=== PATIENT | male | born 1960 | race Caucasian/White ===

== ENCOUNTER → 2020-06-13 | Outpatient (CLI) | payer OTHER ==
[2020-06-14 10:14] LABS: Stool Occult Bld Immuno 1 Negative (NEGATIVE)
== END | disposition home or self-care (01) ==
LOC: LAB SHORT 15:13 → LAB SRC 15:13 → LAB FUT 06-12 07:00
PROVIDERS: Physician Assistant
DX: Z12.11 Encounter for screening for malignant neoplasm of colon (principal)
CPT/HCPCS: G0328

== ENCOUNTER → 2022-10-05 | Outpatient (CLI) | payer OTHER ==
[2022-10-08 07:57] LABS: Stool Occult Bld Immuno 1 Negative (NEGATIVE)
== END ==
LOC: LAB 12:00 → LAB SHORT 12:00
PROVIDERS: Physician Assistant
DX: Z12.11 Encounter for screening for malignant neoplasm of colon (principal)
CPT/HCPCS: G0328

== ENCOUNTER → 2023-09-13 | Outpatient (CLI) | payer OTHER ==
[2023-09-13 14:42] LABS: Stool Occult Bld Immuno 1 Negative (NEGATIVE)
== END | disposition home or self-care (01) ==
LOC: LAB SHORT 09:00 → LAB 09:00
PROVIDERS: Physician Assistant
DX: Z12.11 Encounter for screening for malignant neoplasm of colon (principal)
CPT/HCPCS: G0328

== ENCOUNTER 2024-07-29 10:10 | Emergency (ER) | payer MEDICARE, OTHER ==
[~2024-07-29] VITALS: Ht 180.3 cm; Wt 87.5 kg
[2024-07-29 11:12] LABS: BASOPHILS ABSOLUTE AUTO 0.03 K/mm3 (0.00-0.23); BASOPHILS PERCENT AUTO 1 % (0-2); EOSINOPHILS ABSOLUTE AUTO 0.24 K/mm3 (0.00-0.68); EOSINOPHILS PERCENT AUTO 5 % (0-6); Hematocrit 38.8 % (37.0-53.0); Hemoglobin 13.3 g/dL (13.5-17.5); IMMATURE GRAN ABSOLUTE AUTO 0.02 K/mm3 (0.00-0.10); IMMATURE GRAN PERCENT AUTO 0 % (0-1); LYMPHOCYTES ABSOLUTE AUTO 2.41 K/mm3 (0.84-5.20); LYMPHOCYTES PERCENT AUTO 48 % (21-46); MONOCYTES ABSOLUTE AUTO 0.72 K/mm3 (0.16-1.47); MONOCYTES PERCENT AUTO 14 % (4-13); Mean Corpuscular HGB Conc 34.3 g/dL (31.5-36.5); Mean Corpuscular Volume 82 fL (80-100); NEUTROPHILS ABSOLUTE AUTO 1.62 K/mm3 (1.96-9.15); NEUTROPHILS PERCENT AUTO 32 % (41-73); Platelet Count 263 K/mm3 (150-400); RDW Coefficient Variation 14.7 % (11.7-14.2); RDW Standard Deviation 43.5 fL (35.1-46.3); Red Blood Cell Count 4.75 M/mm3 (4.30-5.90); White Blood Cell Count 5.04 K/mm3 (4.00-11.30)
[2024-07-29 11:22] LABS: Albumin, Blood 3.6 g/dL (3.4-5.0); Albumin/Globulin Ratio 0.9 (0.8-1.8); Bilirubin, Total 0.8 mg/dL (0.1-1.0); Bun/Creatinine Ratio 17.5 (12.0-20.0); Calcium, Blood 9.1 mg/dL (8.5-10.1); Creatinine, Blood 0.8 mg/dL (0.60-1.20); Globulin, Blood 3.8 g/dL (2.2-4.0); Potassium, Blood 3.9 mmol/L (3.5-5.5); Total Protein, Blood 7.4 g/dL (6.4-8.2)
[2024-07-29 11:57] LABS: Source, Urine Clean Catch
[2024-07-29 12:01] LABS: Bilirubin, Urine Neg (Neg); Blood, Urine 5+ (Neg); Glucose Qualitative, Urine Neg (Neg); Ketones, Urine Neg (Neg); Leukocyte Esterase, Urine 1+ (Neg); Nitrite, Urine Neg (Neg); Protein, Urine 2+ (Neg); Specific Gravity, Urine 1.015 (1.003-1.022); Urobilinogen, Urine NORM (Normal)
[2024-07-29 12:22] LABS: Appearance, Urine Hazy (Clear); Color, Urine Yellow (P-Yellow)
[2024-07-29 12:23] LABS: Bacteria Few /hpf; Red Blood Cells, Urine 25-50 /hpf (0-2); Squamous Epithelial Cells Not Seen /hpf (Few)
[2024-07-29] MEDS ORDERED: ATOR10 (13:09)
[2024-07-29] MEDS ORDERED: FLUT.05NI (13:09)
[2024-07-29] MEDS ORDERED: Ketorolac Tromethamine 15mg Vial IV ONE ×2 (14:40→16:55)
[2024-07-29] MEDS ORDERED: FentaNYL Citrate 50 MCG/ML 2 ML Injection IV ONE ×2 (14:40→15:15)
[2024-07-29] MEDS ORDERED: Percocet 5-3251 EACH PO (16:48)
[2024-07-29] MEDS ORDERED: IBUP600 PO (16:48)
[2024-07-29] MEDS ORDERED: CEPH500 PO (16:48)
[2024-07-29 17:11] VITALS: BP 136/82
== END 2024-07-29 17:11 | disposition home or self-care (01) ==
LOC: ER 10:10
PROVIDERS: Student in an Organized Health Care Education/Training Program
DX: N13.2 Hydronephrosis with renal and ureteral calculous obstruction (principal); Z87.891 Personal history of nicotine dependence; Z79.899 Other long term (current) drug therapy
CPT/HCPCS: 74177; 80053; 81001; 83690; 84484; 85025; 87086; 93005; 93010; 96374-59; 96375; 99284-25; J1885; J3010; Q9967

== ENCOUNTER → 2024-09-30 | Outpatient (CLI) | payer MEDICARE, OTHER ==
[~2024-09-30] MED LIST: ATOR10; CEPH500 PO; FLUT.05NI; IBUP600 PO; Percocet 5-3251 EACH PO
[2024-10-03 15:40] LABS: Stool Occult Bld Immuno 1 Positive (NEGATIVE)
== END ==
LOC: LAB SHORT 05:00 → LAB 05:00
DX: Z12.11 Encounter for screening for malignant neoplasm of colon (principal); Z12.12 Encounter for screening for malignant neoplasm of rectum
CPT/HCPCS: G0328

== ENCOUNTER → 2024-10-26 | Outpatient (CLI) | payer OTHER ==
[2024-11-01 12:12] LABS: CALCIUM, URINE - PER 24H 292 mg/d (100-250); CALCIUM, URINE - PER VOLUME 26.5 mg/dL; CHLORIDE, URINE - PER 24H 167 mmol/d (140-250); CHLORIDE, URINE - PER VOLUME 152 mmol/L; CITRIC ACID, URINE - PER 24H 654 mg/d (320-1240); CITRIC ACID,URINE - PER VOLUME 595 mg/L; CREATININE, URINE - PER 24H 2585 mg/d (800-2100); CREATININE, URINE - PER VOLUME 235 mg/dL; HOURS COLLECTED 24 hr; MAGNESIUM, URINE - PER VOLUME 7.2 mg/dL; MAGNESIUM, URINE PER 24H 79 mg/d (12-199); OXALATE, URINE - PER 24H 23 mg/d (16-49); OXALATE, URINE - PER VOLUME 21 mg/L; PH, URINE 5.71 (5.00-7.50); PHOSPHORUS, URINE - PER 24H 1078 mg/d (400-1300); PHOSPHORUS, URINE - PER VOLUME 98 mg/dL; POTASSIUM, URINE - PER 24H 69 mmol/d (25-125); POTASSIUM, URINE - PER VOLUME 63 mmol/L; SODIUM, URINE - PER 24H 177 mmol/d (51-286); SODIUM, URINE - PER VOLUME 161 mmol/L; SULFATE, URINE - PER 24H 26 mmol/d (6-30); SULFATE, URINE - PER VOLUME 24 mmol/L; TOTAL VOLUME 1100 mL; URIC ACID, URINE - PER 24H 760 mg/d (250-750); URIC ACID, URINE - PER VOLUME 69.1 mg/dL; URINE SUPERSATURATION INTERP Abnormal; URINE SUPERSATURATION, CAHPO4 2.81; URINE SUPERSATURATION, CAOX 8.64; URINE SUPERSATURATION, UA CALC 1.69
== END ==
LOC: LAB SHORT 09:00 → LAB 09:00 → LAB FUT 10-18 10:50
PROVIDERS: Urology
DX: N20.2 Calculus of kidney with calculus of ureter (principal)
CPT/HCPCS: 81003; 81050; 82131; 82140; 82340; 82436; 82507; 82570; 83735; 83935; 83945; 84105; 84133; 84300; 84392; 84560

== ENCOUNTER → 2025-03-14 | Outpatient (CLI) | payer OTHER ==
[2025-03-19 14:20] LABS: CALCIUM, URINE - PER 24H 418 mg/d (100-250); CALCIUM, URINE - PER VOLUME 20.5 mg/dL; CHLORIDE, URINE - PER 24H 226 mmol/d (140-250); CHLORIDE, URINE - PER VOLUME 111 mmol/L; CITRIC ACID, URINE - PER 24H 773 mg/d (320-1240); CITRIC ACID,URINE - PER VOLUME 379 mg/L; CREATININE, URINE - PER 24H 2122 mg/d (800-2100); CREATININE, URINE - PER VOLUME 104 mg/dL; HOURS COLLECTED 24 hr; MAGNESIUM, URINE - PER VOLUME 4.6 mg/dL; MAGNESIUM, URINE PER 24H 94 mg/d (12-199); OXALATE, URINE - PER 24H 39 mg/d (16-49); OXALATE, URINE - PER VOLUME 19 mg/L; PHOSPHORUS, URINE - PER 24H 1122 mg/d (400-1300); PHOSPHORUS, URINE - PER VOLUME 55 mg/dL; POTASSIUM, URINE - PER 24H 122 mmol/d (25-125); POTASSIUM, URINE - PER VOLUME 60 mmol/L; SODIUM, URINE - PER 24H 194 mmol/d (51-286); SODIUM, URINE - PER VOLUME 95 mmol/L; SULFATE, URINE - PER 24H 22 mmol/d (6-30); SULFATE, URINE - PER VOLUME 11 mmol/L; URIC ACID, URINE - PER 24H 632 mg/d (250-750); URIC ACID, URINE - PER VOLUME 31.0 mg/dL; URINE SUPERSATURATION INTERP Abnormal; URINE SUPERSATURATION, CAHPO4 2.54; URINE SUPERSATURATION, CAOX 9.48; URINE SUPERSATURATION, UA CALC 0.56
== END | disposition home or self-care (01) ==
LOC: LAB 07:54 → LAB SHORT 07:54
PROVIDERS: Urology
DX: N20.2 Calculus of kidney with calculus of ureter (principal)
CPT/HCPCS: 81003; 81050; 82131; 82140; 82340; 82436; 82507; 82570; 83735; 83935; 83945; 84105; 84133; 84300; 84392; 84560

== ENCOUNTER 2025-07-10 10:04 | Emergency (ER) | payer OTHER ==
[~2025-07-10] VITALS: Ht 180.3 cm; Wt 96.6 kg
[2025-07-10] MEDS ORDERED: ALBU90OI (10:23)
[2025-07-10 12:00] VITALS: BP 126/81
== END 2025-07-10 12:01 | disposition home or self-care (01) ==
LOC: ER 10:04
DX: I71.43 Infrarenal abdominal aortic aneurysm, without rupture (principal); I72.3 Aneurysm of iliac artery; R10.9 Unspecified abdominal pain; Z87.891 Personal history of nicotine dependence; Z79.899 Other long term (current) drug therapy
CPT/HCPCS: 76775; 93005; 93010; 99284-25